=== PATIENT | female | born 1950 | race Caucasian/White ===

== ENCOUNTER 2016-04-28 18:31 | Observation (INO) | payer BC ==
[~2016-04-28] VITALS: Ht 167.6 cm; Wt 73.5 kg
[2016-04-28] MEDS ORDERED: SODIUM CHLORIDE FLUSH 3 ML SYR IV ONE (19:00)
[2016-04-28] MEDS ORDERED: SODIUM CHLORIDE FLUSH 10 ML SYR IV PRN (19:00)
[2016-04-28 19:15] LABS: BASOPHILS % (AUTO) 1 % (0-2); EOSINOPHILS # (AUTO) 0.4 10^3uL; EOSINOPHILS % (AUTO) 5 % (0-4); LYMPHOCYTES # (AUTO) 1.7 X10^3; MEAN CORPUSCULAR HEMOGLOBIN 29.8 PG (26.0-34.0); MEAN CORPUSCULAR HGB CONC 33.7 g/dL (31.0-37.0); MEAN CORPUSCULAR VOLUME 88 FL (80-100); MEAN PLATELET VOLUME 9.6 FL (6.0-9.5); MONOCYTES # (AUTO) 0.8 X10^3; MONOCYTES % (AUTO) 10 % (3-11); NEUTROPHILS # (AUTO) 5.1 X10^3; NEUTROPHILS % (AUTO) 63 % (51-67); PLATELET COUNT 301 10^3uL (150-450); WHITE BLOOD COUNT 8.08 10^3uL (4.0-11.0)
[2016-04-28 19:34] LABS: ALBUMIN 4.6 g/dL (3.4-5.0); ALKALINE PHOSPHATASE 85 U/L (38-126); ANION GAP 19.2 MEQ/L (3-15); BUN/CREATININE RATIO 27 (10-20); CALCULATED IONIZED CALCIUM 4.1 mg/dL (3.8-4.6); CREATINE KINASE 32 U/L (30-135); TOTAL PROTEIN 8.8 g/dL (6.4-8.5)
[2016-04-28 20:19] LABS: BILIRUBIN,URINE Negative (Negative); CLARITY,URINE Cloudy; COLOR,URINE Amber; GLUCOSE, URINE (UA) Negative (Negative); LEUKOCYTE ESTERASE ,URINE 2+ (Negative); PH,URINE 5.5 (5.0 - 8.0); UROBILINOGEN,URINE 0.2 mg/dL (0.2-1.0)
[2016-04-28 20:31] LABS: URINE CENTRIFUGED VOLUME 12 mL
[2016-04-28 20:32] LABS: CALCIUM OXALATE CRYSTALS,UR Rare /HPF
[2016-04-28 20:33] LABS: AMPHETAMINE SCREEN, URINE Negative (Negative); CANNABINOID SCREEN, URINE Negative (Negative); METHAMPHETAMINE SCREEN URINE S NEGATIVE (NEGATIVE); OPIATE SCREEN URINE Negative (Negative); PROPOXYPHENE STAT NEGATIVE (NEGATIVE)
[2016-04-28] MEDS ORDERED: ACETAMINOPHEN 325 MG TAB (TYLENOL) PO PRN (21:35)
[2016-04-28] MEDS ORDERED: MECLIZINE 25 MG (ANTIVERT) TABLET PO PRN (21:35)
[2016-04-28] MEDS ORDERED: MAG HYDROX/AL HYDROX/SIMETH 200-200-20/5 ML (MAG-AL PLUS) 30 ML UDC PO PRN (21:40)
[2016-04-28] MEDS ORDERED: PROMETHAZINE HCL INJ 12.5 MG in SODIUM CHLORIDE 25 ML IV PRN (21:40)
[2016-04-28] MEDS: cefTRIAXone SODIUM 1,000 MG in SODIUM CHLORIDE 50 ML IV SCH (21:40)
[2016-04-28] MEDS ORDERED: MAGNESIUM HYDROXIDE 80MG/ML (MILK OF MAGNESIA) 30 ML UDC PO PRN (21:40)
[2016-04-28] MEDS ORDERED: POLYETHYLENE GLYCOL 17 GM (MIRALAX) PACKET PO PRN (21:40)
[2016-04-28] MEDS ORDERED: CALCIUM CARBONATE CHEWABLE 300 MG (TUMS) TABLET PO PRN (21:40)
[2016-04-28] MEDS ORDERED: DOCUSATE SODIUM 100 MG (COLACE) CAP PO PRN (21:40)
[2016-04-28] MEDS ORDERED: ONDANSETRON 4 MG (ZOFRAN) ORAL DISSOLVE TAB PO PRN (21:40)
[2016-04-28 21:45] VITALS: BP 155/85
[2016-04-28 21:48] VITALS: BP 155/85
[2016-04-28] MEDS ORDERED: cefTRIAXone 1 GM (ROCEPHIN) VIAL ONE (21:48)
[2016-04-28] MEDS ORDERED: SODIUM CHLORIDE 100 ML ONE (21:49)
[2016-04-28] MEDS ORDERED: DEXTROSE 50% 25 GM/50 ML SYRINGE IV PRN (22:20)
[2016-04-28] MEDS ORDERED: GLUCAGON EMERGENCY 1 MG/KIT IM PRN (22:20)
[2016-04-28] MEDS ORDERED: DEXTROSE ORAL GEL (GLUTOSE 40%) 15 GM TUBE PO PRN (22:20)
[2016-04-29 04:32] VITALS: BP 140/77
[2016-04-29 06:10] LABS: BASOPHILS % (AUTO) 1 % (0-2); EOSINOPHILS # (AUTO) 0.4 10^3uL; EOSINOPHILS % (AUTO) 6 % (0-4); LYMPHOCYTES # (AUTO) 1.8 X10^3; MEAN CORPUSCULAR HEMOGLOBIN 29.4 PG (26.0-34.0); MEAN CORPUSCULAR HGB CONC 33.5 g/dL (31.0-37.0); MEAN CORPUSCULAR VOLUME 88 FL (80-100); MEAN PLATELET VOLUME 9.6 FL (6.0-9.5); MONOCYTES # (AUTO) 0.8 X10^3; MONOCYTES % (AUTO) 12 % (3-11); NEUTROPHILS # (AUTO) 3.4 X10^3; NEUTROPHILS % (AUTO) 53 % (51-67); PLATELET COUNT 264 10^3uL (150-450); WHITE BLOOD COUNT 6.37 10^3uL (4.0-11.0)
[2016-04-29] MEDS: INSULIN LISPRO 1 UNIT/0.01 ML (HUMALOG) DOSE SC SCH ×4 (06:10→21:00)
[2016-04-29 06:39] LABS: ALBUMIN 3.9 g/dL (3.4-5.0); ANION GAP 15.6 MEQ/L (3-15); PHOSPHORUS 3.8 mg/dL (2.4-4.9)
[2016-04-29 07:29] VITALS: BP 115/59
[2016-04-29] MEDS: ATORVASTATIN 40 MG (LIPITOR) TABLET PO SCH (08:11)
[2016-04-29] MEDS: ENOXAPARIN 40 MG/0.4 ML (LOVENOX) SYR SC SCH (08:11)
[2016-04-29] MEDS: METFORMIN 500 MG PO SCH ×2 (08:11→17:09)
[2016-04-29] MEDS: ASPIRIN 81 MG CHEW (CHILDREN'S ASA) PO SCH (08:11)
[2016-04-29] MEDS: TIMOLOL 0.25% OU SCH (10:27)
[2016-04-29 11:21] VITALS: BP 115/76
[2016-04-29 15:39] VITALS: BP 130/69
[2016-04-29 19:51] VITALS: BP 158/60
[2016-04-29] MEDS: cefTRIAXone SODIUM 1,000 MG in SODIUM CHLORIDE 50 ML IV SCH (20:19)
[2016-04-29] MEDS ORDERED: LATANOPROST 0.005% OPHTHALMIC SOLN (XALATAN) 2.5 ML BTL OU SCH (21:00)
[2016-04-30 00:14] VITALS: BP 122/58
[2016-04-30 04:48] VITALS: BP 116/53
[2016-04-30] MEDS: INSULIN LISPRO 1 UNIT/0.01 ML (HUMALOG) DOSE SC SCH (07:09)
[2016-04-30 07:57] VITALS: BP 140/84
[2016-04-30] MEDS: TIMOLOL 0.25% OU SCH (08:10)
[2016-04-30] MEDS: ASPIRIN 81 MG CHEW (CHILDREN'S ASA) PO SCH (08:10)
[2016-04-30] MEDS: ENOXAPARIN 40 MG/0.4 ML (LOVENOX) SYR SC SCH (08:10)
[2016-04-30] MEDS: ATORVASTATIN 40 MG (LIPITOR) TABLET PO SCH (08:10)
[2016-04-30] MEDS: METFORMIN 500 MG PO SCH (08:11)
== END 2016-04-30 10:38 | disposition short-term general hospital (02) ==
LOC: ED 18:33 → MED/SURG 21:02
PROVIDERS: ADMIT Internal Medicine; ATTEND Internal Medicine
DX: R47.01 Aphasia (principal); R47.1 Dysarthria and anarthria; N39.0 Urinary tract infection, site not specified; R27.0 Ataxia, unspecified; E86.0 Dehydration; R42 Dizziness and giddiness; R51 Headache; R55 Syncope and collapse; E11.9 Type 2 diabetes mellitus without complications; I10 Essential (primary) hypertension; H40.9 Unspecified glaucoma; Z79.82 Long term (current) use of aspirin; G93.89 Other specified disorders of brain
CPT/HCPCS: 36415; 70450; 71020; 80053; 80069; 80307; 81003; 81015; 82550; 82553; 83880; 84443; 84484; 85025; 85610; 86140; 87088; 94760; 96365; 96366; 96372; 97110; 97161; 97166; 99218; 99284; G8978; G8979; G8987; G8988; J0696; J1650; J7030; J7050; 93005; 93010; 99285

== ENCOUNTER → 2016-04-28 | Outpatient (CLI) | payer BC ==
[~2016-04-28] MED LIST: AC325T PO; ASCO-262 PO; ASPI-158 PO; ASPI-586 PO; ATOR80TA PO; BUDE8.6S NSEACH; C250T PO; CALC500T3 PO; CHOL400T29 PO; CYAN200014 PO; DOCU100C8 PO; FERR-74 PO; FERR325T5 PO; GLIM2TAB PO; GLIP10TA13 PO; L.AC1CAP6 PO; LATA2.5D5 OU; MECL-105 PO; MMT17NA NSEACH; MTF500TCR PO; NF-VITD400 PO; PEG15DRO5 OU; PHEN10TA20 PO; PRD20T PO; TIMO10DR12 OU; TIMO5DRO17 OU; WALKER
== END ==
LOC: EMS 18:50
PROVIDERS: ATTEND Family Medicine
DX: I63.9 Cerebral infarction, unspecified (principal)

== ENCOUNTER → 2016-04-30 | Outpatient (CLI) | payer BC | LOC: EMS 11:00 | PROVIDERS: ATTEND Internal Medicine | DX: R47.1 Dysarthria and anarthria (principal); R47.01 Aphasia; N39.0 Urinary tract infection, site not specified ==

== ENCOUNTER 2016-05-22 06:56 | Inpatient (IN) | payer BC ==
[2016-05-22] VITALS (9 sets, daily range): BP systolic 101–168; BP diastolic 41–86
[~2016-05-22] VITALS: Ht 165.1 cm; Wt 75.1 kg
[2016-05-22] MEDS ORDERED: NS IV 500 ML 500 ML IV SCH ×2 (07:45→08:35)
[2016-05-22 08:10] LABS: MEAN CORPUSCULAR HEMOGLOBIN 30.1 PG (26.0-34.0); MEAN CORPUSCULAR HGB CONC 35.4 g/dL (31.0-37.0); MEAN CORPUSCULAR VOLUME 85 FL (80-100); PLATELET COUNT 315 10^3uL (150-450)
[2016-05-22 08:15] LABS: BILIRUBIN,URINE Negative (Negative); CLARITY,URINE Cloudy; GLUCOSE, URINE (UA) Negative (Negative); LEUKOCYTE ESTERASE ,URINE 1+ (Negative); PH,URINE 5.5 (5.0 - 8.0); UROBILINOGEN,URINE 0.2 mg/dL (0.2-1.0)
[2016-05-22 08:18] LABS: COLOR,URINE Dark Yellow
[2016-05-22 08:20] LABS: WHITE BLOOD COUNT 31.44 10^3uL (4.0-11.0)
[2016-05-22 08:22] LABS: ALKALINE PHOSPHATASE 88 U/L (38-126); ANION GAP 18.6 MEQ/L (3-15); BAND NEUTROPHILS % 2 % (0-6); BUN/CREATININE RATIO 21 (10-20); CALCULATED IONIZED CALCIUM 4.5 mg/dL (3.8-4.6); EOSINOPHILS % 1 % (0-4); LYMPHOCYTES # 1.6 #; MONOCYTES # 3.1 #; MONOCYTES % 10 % (3-11); RBC MORPH NORMAL (NORMAL); SEGMENTED NEUTROPHILS % 82 % (51-67); TOTAL CELLS COUNTED 100; TOTAL PROTEIN 7.5 g/dL (6.4-8.5)
[2016-05-22 08:26] LABS: URINE CENTRIFUGED VOLUME <10mL Unspun
[2016-05-22 08:27] LABS: AMPHETAMINE SCREEN, URINE Negative (Negative); CANNABINOID SCREEN, URINE Negative (Negative); METHAMPHETAMINE SCREEN URINE S NEGATIVE (NEGATIVE); OPIATE SCREEN URINE Negative (Negative); PROPOXYPHENE STAT NEGATIVE (NEGATIVE); RBC,URINE 50-100 /HPF
[2016-05-22 08:29] LABS: CREATINE KINASE 590 U/L (30-135)
[2016-05-22] MEDS ORDERED: cefTRIAXone SODIUM 1,000 MG in SODIUM CHLORIDE 50 ML IV ONE (08:35)
--- NOTE | 2016-05-22 08:48 | NUR ---
Dr. Hercules consulting Dr. Wang. Patient to be discussed
--- NOTE | 2016-05-22 09:15 | NUR ---
Rocephin infusion completed at this time
--- NOTE | 2016-05-22 09:50 | NUR ---
Normal Saline fluid bolus is completed at this time.
--- NOTE | 2016-05-22 10:00 | NUR ---
FALL RISK GOWN PLACED ON PT & REG HOSP GOWN REMOVED. CL
[2016-05-22] MEDS ORDERED: GLUCAGON EMERGENCY 1 MG/KIT IM PRN (10:20)
[2016-05-22] MEDS ORDERED: ONDANSETRON 2 MG/ML (Z0FRAN) 2 ML VIAL IV PRN (10:20)
[2016-05-22] MEDS ORDERED: ACETAMINOPHEN 325 MG TAB (TYLENOL) PO PRN (10:20)
[2016-05-22] MEDS ORDERED: DEXTROSE 50% 25 GM/50 ML SYRINGE IV PRN (10:20)
[2016-05-22] MEDS ORDERED: DEXTROSE ORAL GEL (GLUTOSE 40%) 15 GM TUBE PO PRN (10:20)
--- NOTE | 2016-05-22 10:20 | NUR ---
Pt admitted to 310 via cart accompanied by Jacinto ED RN. Pt transferred to cart via slideboard. Pt rouses to name, but quickly drifts off to sleep. Pt is oriented to self, location, and year but does not answer any other questions. Tushar, at bedside. NS at 100mL/hr infusing into 22g LH with no difficulty. Bed alarm, pressure alarm, tabs alarm on for safety.
[2016-05-22] MEDS ORDERED: NS FLUSH 3 ML PRN IV (10:35)
[2016-05-22] MEDS ORDERED: NS FLUSH 10 ML PRN IV (10:35)
[2016-05-22] MEDS: INSULIN LISPRO 1 UNIT/0.01 ML (HUMALOG) DOSE SC SCH ×3 (11:30→21:17)
[2016-05-22] MEDS ORDERED: DOCUSATE SODIUM 100 MG (COLACE) CAP PO PRN (11:55)
[2016-05-22] MEDS ORDERED: [UNRECOGNIZED DRUG - OTHER] OU PRN (11:55)
[2016-05-22] MEDS ORDERED: HYPROMELLOSE OU PRN (11:55)
[2016-05-22] MEDS ORDERED: PEG OU PRN (11:55)
[2016-05-22] MEDS ORDERED: GLYCERIN OU PRN (11:55)
[2016-05-22] MEDS ORDERED: NON-FORMULARY MEDICATION 1 EA EA (L.acidoph & Paracasei,B.lactis (Probiotic) 1 CAP) PO PRN (11:55)
[2016-05-22] MEDS ORDERED: ACIDOPHILUS/LACTOBACILLUS SPOROGENES 1 TABLET PO PRN (13:45)
[2016-05-22] MEDS ORDERED: CALCIUM CARBONATE CHEWABLE 300 MG (TUMS) TABLET PO PRN (13:45)
[2016-05-22] MEDS ORDERED: ARTIFICIAL TEARS (REFRESH) OPHTHALMIC DROPS OU PRN (13:45)
--- NOTE | 2016-05-22 16:52 | NUR ---
MED REC IN PROGRESS: prescription medications verified by retail pharmacy ( pharmacy), external med history application and list provided by PCP (Aubrey). will bring in complete medication list including all otc meds. Completed by Anjali Mueller, Pharm. D. Candidate 2017.
--- NOTE | 2016-05-22 17:59 | NUR ---
Pt resting in bed, slept for most of shift. Skin warm, dry, intact. Resprs nonlabored, even on RA. at bedside. Pt has been lethargic and somnolent this shift, does rouse to voice but quickly falls back asleep. Oriented to name, location, and year, but does not answer other questions. Speech is delayed and somewhat slurred. NS @ 100mL/hr infusing with no difficulty. Bed/tabs/pressure alarms on at this time.
--- NOTE | 2016-05-22 18:30 | NUR ---
PRN Zofran given at this time d/t pt small amount of vomiting undigested food. Pt denies pain or nausea.
[2016-05-22] MEDS: ATORVASTATIN 40 MG (LIPITOR) TABLET PO SCH (20:42)
[2016-05-22] MEDS: LATANOPROST 0.005% OPHTHALMIC SOLN (XALATAN) 2.5 ML BTL OU SCH (20:42)
[2016-05-23 00:05] VITALS: BP 157/66
[2016-05-23 03:54] VITALS: BP 128/52
[2016-05-23 06:18] LABS: MEAN CORPUSCULAR HGB CONC 35.3 g/dL (31.0-37.0); MEAN CORPUSCULAR VOLUME 85 FL (80-100); MEAN PLATELET VOLUME 9.9 FL (6.0-9.5); PLATELET COUNT 228 10^3uL (150-450); WHITE BLOOD COUNT 23.07 10^3uL (4.0-11.0)
--- NOTE | 2016-05-23 06:24 | NUR ---
Patient rests in bed throughout night. Has difficulties transferring to weight chair with two assist. Has been incontinent throughout night. Resting in bed, has been slightly confused about location and situation this shift. No needs at this time.
[2016-05-23 06:35] LABS: BAND NEUTROPHILS % 4 % (0-6); EOSINOPHILS % 0 % (0-4); LYMPHOCYTES # 0.7 #; MONOCYTES # 0.5 #; MONOCYTES % 2 % (3-11); RBC MORPH NORMAL (NORMAL); SEGMENTED NEUTROPHILS % 91 % (51-67); TOTAL CELLS COUNTED 100
[2016-05-23 06:40] LABS: ALBUMIN 3.1 g/dL (3.4-5.0); ANION GAP 13.9 MEQ/L (3-15); CALCULATED IONIZED CALCIUM 4.2 mg/dL (3.8-4.6); TOTAL PROTEIN 6.4 g/dL (6.4-8.5)
[2016-05-23] MEDS: INSULIN LISPRO 1 UNIT/0.01 ML (HUMALOG) DOSE SC SCH ×4 (08:01→21:08)
[2016-05-23 08:10] VITALS: BP 142/66
--- NOTE | 2016-05-23 08:30 | NUR ---
Patient is alert and able to answer most simple questions. She is oriented X2. Poor impulse control this morning- does not seem to take safety advice. Placed a pressure alarm in the chair and in the bed. Tabs alarm as well.
[2016-05-23] MEDS ORDERED: NON-FORMULARY MEDICATION 1 EA EA (Cyanocobalamin (Vitamin B-12) (Vitamin B-12) 2,000 MCG) PO SCH (09:00)
[2016-05-23] MEDS ORDERED: NON-FORMULARY MEDICATION 1 EA EA (Aspirin (Aspir 81) 81 MG) PO SCH (09:00)
[2016-05-23] MEDS ORDERED: NON-FORMULARY MEDICATION 1 EA EA (Ascorbate Calcium (Vitamin C) 500 MG) PO SCH (09:00)
[2016-05-23] MEDS ORDERED: ATORVASTATIN 80 MG PO SCH (09:00)
[2016-05-23] MEDS: FERROUS SULFATE 325 MG (IRON) TABLET PO SCH (10:04)
[2016-05-23] MEDS: ASCORBIC ACID 500 MG (VITAMIN C) TABLET PO SCH (10:04)
[2016-05-23] MEDS: ASPIRIN 81 MG CHEW (CHILDREN'S ASA) PO SCH (10:05)
[2016-05-23] MEDS: CYANOCOBALAMIN 1000 MCG (VITAMIN B-12) TABLET PO SCH (10:05)
[2016-05-23] MEDS: TIMOLOL 0.25% OU SCH (10:05)
[2016-05-23] MEDS: NS FLUSH 3 ML DAILY IV SCH ×2 (10:06→17:45)
[2016-05-23] MEDS: CHOLECALCIFEROL PO SCH (10:06)
[2016-05-23] MEDS: cefTRIAXone SODIUM 1,000 MG in SODIUM CHLORIDE 50 ML IV SCH (10:06)
[2016-05-23] MEDS ORDERED: SODIUM CHLORIDE 100 ML ONE (10:18)
[2016-05-23] MEDS ORDERED: NS 100 ML (IVPB) BAG IV PRN (10:20)
[2016-05-23 11:35] VITALS: BP 100/61
[2016-05-23 16:00] VITALS: BP 118/68
[2016-05-23] MEDS ORDERED: MECLIZINE 12.5 MG PO PRN (17:00)
--- NOTE | 2016-05-23 18:46 | NUR ---
The patient remains confused but her mentation has improved some since this morning. She is oriented to place, time, self, and situation but she did not know the current president. She has been drowsy all day but wakes easily. Able to get up with assist of one this afternoon which is also an improvement. She still has difficulty processing information when she's given an instruction.
[2016-05-23 19:32] VITALS: BP 103/48
[2016-05-23] MEDS: LATANOPROST 0.005% OPHTHALMIC SOLN (XALATAN) 2.5 ML BTL OU SCH (21:07)
[2016-05-23] MEDS: ATORVASTATIN 40 MG (LIPITOR) TABLET PO SCH (21:07)
--- NOTE | 2016-05-23 21:10 | NUR ---
Accucheck is 283 this evening; Humalog 3 units given per sliding scale insulin. Pt. takes PO med without difficulty; denies discomfort. Pt. answers questions appropriately; delayed speech pattern; uneven bilateral profile trimmer strength. Fall risk precautions observed. Call light and H2O within reach.
[2016-05-24] VITALS (8 sets, daily range): BP systolic 96–121; BP diastolic 44–67
--- NOTE | 2016-05-24 06:00 | NUR ---
Accucheck is 156 this morning; sliding scale insulin not required. Pt. reports slight dizziness at times; quick resolution; safety measures in place.
--- NOTE | 2016-05-24 06:30 | NUR ---
Pt. slept in intervals last night; bed alarm sounded as she would attempt to get up on her own occasionally. Staff assist x2 for safety when ambulating to and fro bathroom as unsteady yet on feet. Neuro checks have slightly improved although pt. continues to have a low level of confusion at times. Accucheck this morning is 156; sliding scale insulin not required. Call light and H2O within reach. Safety measures observed.
[2016-05-24 06:32] LABS: MEAN CORPUSCULAR HEMOGLOBIN 30.1 PG (26.0-34.0); MEAN CORPUSCULAR HGB CONC 34.9 g/dL (31.0-37.0); MEAN CORPUSCULAR VOLUME 86 FL (80-100); MEAN PLATELET VOLUME 9.6 FL (6.0-9.5); PLATELET COUNT 193 10^3uL (150-450); WHITE BLOOD COUNT 12.83 10^3uL (4.0-11.0)
[2016-05-24] MEDS: INSULIN LISPRO 1 UNIT/0.01 ML (HUMALOG) DOSE SC SCH ×4 (07:11→20:37)
[2016-05-24 07:16] LABS: ALBUMIN 2.8 g/dL (3.4-5.0); ANION GAP 10.5 MEQ/L (3-15); MAGNESIUM* 1.7 mg/dL (1.6-2.3); PHOSPHORUS 2.9 mg/dL (2.4-4.9)
[2016-05-24 07:23] LABS: BAND NEUTROPHILS % 3 % (0-6); EOSINOPHILS % 0 % (0-4); HYPOCHROMASIA SLIGHT; LYMPHOCYTES # 0.5 #; MONOCYTES # 0.5 #; MONOCYTES % 4 % (3-11); RBC MORPH SEE REFERENCE (NORMAL); SEGMENTED NEUTROPHILS % 89 % (51-67); TOTAL CELLS COUNTED 100
[2016-05-24] MEDS: cefTRIAXone SODIUM 1,000 MG in SODIUM CHLORIDE 50 ML IV SCH (08:19)
--- NOTE | 2016-05-24 08:19 | NUR ---
Pt takes AM meds without difficulty. Denies needs at this time. Alert/oriented. Neuro's unchanged.
[2016-05-24] MEDS: ASPIRIN 81 MG CHEW (CHILDREN'S ASA) PO SCH (08:21)
[2016-05-24] MEDS: ASCORBIC ACID 500 MG (VITAMIN C) TABLET PO SCH (08:21)
[2016-05-24] MEDS: CHOLECALCIFEROL PO SCH (08:21)
[2016-05-24] MEDS: CYANOCOBALAMIN 1000 MCG (VITAMIN B-12) TABLET PO SCH (08:21)
[2016-05-24] MEDS: FERROUS SULFATE 325 MG (IRON) TABLET PO SCH (08:21)
[2016-05-24] MEDS: TIMOLOL 0.25% OU SCH (08:21)
--- NOTE | 2016-05-24 10:30 | NUR ---
Pt ambulating with [employer]. at bedside.
--- NOTE | 2016-05-24 14:21 | NUR ---
IVF complete at this time- SL per orders.
--- NOTE | 2016-05-24 15:52 | NUR ---
Visitors here for most of afternoon- have gone now. Pt to shower with Carito IRBY.
[2016-05-24] MEDS ORDERED: MECLIZINE 25 MG (ANTIVERT) TABLET PO PRN (16:00)
[2016-05-24] MEDS: predniSONE 20 MG (DELTASONE) TABLET PO SCH (17:24)
[2016-05-24] MEDS: METFORMIN 500 MG PO SCH (17:24)
--- NOTE | 2016-05-24 19:35 | NUR ---
Pt. ambulating hallway with use of walker; [employer] and at side; gait belt attached for safety. Pt. appears very cheerful; gait noted to be slow and cautious.
[2016-05-24] MEDS: ATORVASTATIN 40 MG (LIPITOR) TABLET PO SCH (20:35)
[2016-05-24] MEDS: LATANOPROST 0.005% OPHTHALMIC SOLN (XALATAN) 2.5 ML BTL OU SCH (20:36)
--- NOTE | 2016-05-24 20:40 | NUR ---
Humalog 4 units given per sliding scale insulin-accucheck is 309 this evening. Pt. takes PO med without difficulty; positions self well for eye drops; is pleasant and cooperative. Pt. appears to have quicker responses in conversation this evening. Pt. denies dizziness this evening; safety measures in place; currently resting in recliner watching sports with . Call light and H2O within reach.
[2016-05-25 01:03] VITALS: BP 124/62
[2016-05-25 06:06] LABS: MEAN CORPUSCULAR HEMOGLOBIN 30.5 PG (26.0-34.0); MEAN CORPUSCULAR VOLUME 85 FL (80-100); MEAN PLATELET VOLUME 10.4 FL (6.0-9.5); PLATELET COUNT 199 10^3uL (150-450); WHITE BLOOD COUNT 5.44 10^3uL (4.0-11.0)
[2016-05-25 06:08] VITALS: BP 132/68
[2016-05-25 06:11] LABS: MEAN CORPUSCULAR HGB CONC 35.9 g/dL (31.0-37.0)
--- NOTE | 2016-05-25 06:20 | NUR ---
Accucheck is 264 this morning. Pt. slept in long intervals; assist x 1 to bathroom with use of walker PRN; denies dizziness. Stool sample obtained this shift. Safety measures in place. Call light and H2O within reach.
[2016-05-25 06:29] LABS: ALBUMIN 2.6 g/dL (3.4-5.0); ANION GAP 13.9 MEQ/L (3-15); MAGNESIUM* 1.6 mg/dL (1.6-2.3)
[2016-05-25 06:37] LABS: BAND NEUTROPHILS % 1 % (0-6); EOSINOPHILS % 0 % (0-4); LYMPHOCYTES # 0.3 #; MONOCYTES # 0.1 #; MONOCYTES % 1 % (3-11); RBC MORPH NORMAL (NORMAL); SEGMENTED NEUTROPHILS % 93 % (51-67); TOTAL CELLS COUNTED 100
[2016-05-25 06:44] LABS: PHOSPHORUS 3.4 mg/dL (2.4-4.9)
[2016-05-25] MEDS: INSULIN LISPRO 1 UNIT/0.01 ML (HUMALOG) DOSE SC SCH ×4 (08:04→21:20)
[2016-05-25] MEDS: predniSONE 20 MG (DELTASONE) TABLET PO SCH ×2 (08:05→17:26)
[2016-05-25] MEDS: METFORMIN 500 MG PO SCH ×2 (08:05→17:26)
[2016-05-25] MEDS: NS FLUSH 3 ML DAILY IV SCH (08:05)
[2016-05-25] MEDS: TIMOLOL 0.25% OU SCH (08:05)
[2016-05-25] MEDS: cefTRIAXone SODIUM 1,000 MG in SODIUM CHLORIDE 50 ML IV SCH (08:05)
[2016-05-25] MEDS: CHOLECALCIFEROL PO SCH (08:07)
[2016-05-25] MEDS: ASPIRIN 81 MG CHEW (CHILDREN'S ASA) PO SCH (08:07)
[2016-05-25] MEDS: FERROUS SULFATE 325 MG (IRON) TABLET PO SCH (08:07)
[2016-05-25] MEDS: ASCORBIC ACID 500 MG (VITAMIN C) TABLET PO SCH (08:07)
[2016-05-25] MEDS: CYANOCOBALAMIN 1000 MCG (VITAMIN B-12) TABLET PO SCH (08:07)
--- NOTE | 2016-05-25 08:10 | NUR ---
Pt transfers from bed to chair for bfst meal. Blood sugar this AM was 264- Humalog 3units given with bfst per Sliding scale. Takes AM meds without difficulty. Rocephin infusing without difficulty to 22g in [facility]. Denies further needs. Yellow gown/socks in place. tabs alarm and pressure alarm intact for patient safety.
[2016-05-25 08:35] VITALS: BP 125/65
[2016-05-25 11:42] VITALS: BP 129/49
[2016-05-25 16:23] VITALS: BP 142/73
--- NOTE | 2016-05-25 17:43 | NUR ---
Pt sitting up in recliner eating supper and watching tv. Pressure alarm and tabs alarm in place for safety. Takes am meds appropriately. 1700 blood glucose fingerstick was 321- Humalog 7 units sliding scale given as ordered. Will cont to monitor patient.
[2016-05-25 19:39] VITALS: BP 138/61
--- NOTE | 2016-05-25 20:00 | NUR ---
Resting in bed. Is alert and oriented. States she is feeling good tonight. SL intact without complications to site. Denies pain or headache tonight. Ambulates to bathroom with stand by assist of one. Uses walker. Is unsteady at times, but that is her norm. No concerns voiced Call light within reach.
[2016-05-25] MEDS: ATORVASTATIN 40 MG (LIPITOR) TABLET PO SCH (21:17)
[2016-05-25] MEDS: LATANOPROST 0.005% OPHTHALMIC SOLN (XALATAN) 2.5 ML BTL OU SCH (21:17)
[2016-05-26] VITALS (7 sets, daily range): BP systolic 116–149; BP diastolic 57–77
--- NOTE | 2016-05-26 05:44 | NUR ---
Rested well tonight. Up to the bathroom with minimal assist. Remains oriented. Slowly getting stronger. Pleasant and cooperative with cares. Call light within reach.
[2016-05-26 06:06] LABS: MEAN CORPUSCULAR HEMOGLOBIN 30.3 PG (26.0-34.0); MEAN CORPUSCULAR HGB CONC 35.3 g/dL (31.0-37.0); MEAN CORPUSCULAR VOLUME 86 FL (80-100); MEAN PLATELET VOLUME 9.7 FL (6.0-9.5); PLATELET COUNT 241 10^3uL (150-450); WHITE BLOOD COUNT 6.57 10^3uL (4.0-11.0)
[2016-05-26 06:20] LABS: ANION GAP 13.7 MEQ/L (3-15); MAGNESIUM* 1.6 mg/dL (1.6-2.3); PHOSPHORUS 3.5 mg/dL (2.4-4.9)
[2016-05-26 06:33] LABS: BAND NEUTROPHILS % 2 % (0-6); EOSINOPHILS % 0 % (0-4); LYMPHOCYTES # 0.5 #; MONOCYTES # 0.5 #; MONOCYTES % 8 % (3-11); RBC MORPH NORMAL (NORMAL); SEGMENTED NEUTROPHILS % 81 % (51-67); TOTAL CELLS COUNTED 100
[2016-05-26] MEDS: INSULIN LISPRO 1 UNIT/0.01 ML (HUMALOG) DOSE SC SCH ×4 (06:35→21:31)
[2016-05-26] MEDS: CHOLECALCIFEROL PO SCH (09:18)
[2016-05-26] MEDS: FERROUS SULFATE 325 MG (IRON) TABLET PO SCH (09:18)
[2016-05-26] MEDS: ASCORBIC ACID 500 MG (VITAMIN C) TABLET PO SCH (09:18)
[2016-05-26] MEDS: CYANOCOBALAMIN 1000 MCG (VITAMIN B-12) TABLET PO SCH (09:18)
[2016-05-26] MEDS: TIMOLOL 0.25% OU SCH (09:19)
[2016-05-26] MEDS: ASPIRIN 81 MG CHEW (CHILDREN'S ASA) PO SCH (09:19)
[2016-05-26] MEDS: METFORMIN 500 MG PO SCH ×2 (09:19→17:38)
[2016-05-26] MEDS: predniSONE 20 MG (DELTASONE) TABLET PO SCH ×2 (09:19→17:38)
[2016-05-26] MEDS: NS FLUSH 3 ML DAILY IV SCH (09:22)
[2016-05-26] MEDS: cefTRIAXone SODIUM 1,000 MG in SODIUM CHLORIDE 50 ML IV SCH (09:22)
[2016-05-26] MEDS: GLIMEPIRIDE 2 MG (AMARYL) TAB PO SCH ×2 (10:46→17:38)
--- NOTE | 2016-05-26 11:07 | NUR ---
NUTRITION ASSESSMENT Level 1 Patient: Aneta Praks Age/Sex: 66/F Date Screened: 05-26-16 Weight: 165.2#/75.1 kg Height: 65 inches Primary Diagnosis: urosepsis Diet Order: medium diabetic Relevant labs: glucose 281 Food allergies: N Nutrition Assessment Criteria Age over 80: N Body Mass Index (BMI) under 19: N Admission Screening Indicates Risk? N Moderate/High Risk Diagnosis: N TPN or PPN: N NPO or clear liquid diet: N Serum Glucose <70 or >180: 3 points Hgb A1c >6.7: N/A Total: 3 points Risk Screen: __ Patient at low nutritional risk based on available data; reevaluate in 5-7 days _X_ Patient at moderate nutritional risk based on available data; reevaluate in 3-5 days __ Patient at high nutritional risk; complete Nutrition Assessment within 48 hours of admission. Comments: Pt. reports weight loss but compared with past admissions, her weight is holding pretty steady. She was 161# on 04-29-16 and 166# in 2015, so she is back to her prior weight. Appetite is good, eating 75-100% of medium diabetic diet. Elevated blood sugars likely due to steroids for recently dx neurosarcoidosis. Noted vast improvement in symptoms with possible plans to go home tomorrow.
--- NOTE | 2016-05-26 13:48 | NUR ---
MULTIDISCIPLINARY MTG/DR. KAMINSKI: Pt. admitted with weakness and UTI along with altered mental status. Pt. has bounced back rapidly after receiving antibiotics. Pt. will receive her last dose of ceftriaxone today. Pt. will follow up with neurology and rheumatology at discharge. Plan for Pt. to discharge home with home health and home PT. SW will check to see if Pt. has a skilled benefit.
--- NOTE | 2016-05-26 19:30 | NUR ---
Patient has been completely oriented today and able to answer questions quickly and appropriately. Able to get up with stand by assist as well. A considerable improvement from Thursday.
[2016-05-26] MEDS: ATORVASTATIN 40 MG (LIPITOR) TABLET PO SCH (21:31)
[2016-05-26] MEDS: LATANOPROST 0.005% OPHTHALMIC SOLN (XALATAN) 2.5 ML BTL OU SCH (21:31)
[2016-05-27 00:18] VITALS: BP 162/85
[2016-05-27 04:08] VITALS: BP 151/76
--- NOTE | 2016-05-27 05:44 | NUR ---
Pt rests in long intervals throughout the night. Remains alert and oriented. Answers questions and uses call light appropriately. SL intact. Resp even and non labored on RA. Blood sugars remain elevated. Pt denies needs at this time.
[2016-05-27 07:48] VITALS: BP 143/79
[2016-05-27] MEDS: CYANOCOBALAMIN 1000 MCG (VITAMIN B-12) TABLET PO SCH (08:16)
[2016-05-27] MEDS: ASPIRIN 81 MG CHEW (CHILDREN'S ASA) PO SCH (08:16)
[2016-05-27] MEDS: predniSONE 20 MG (DELTASONE) TABLET PO SCH (08:16)
[2016-05-27] MEDS: GLIMEPIRIDE 2 MG (AMARYL) TAB PO SCH (08:16)
[2016-05-27] MEDS: METFORMIN 500 MG PO SCH (08:16)
[2016-05-27] MEDS: CHOLECALCIFEROL PO SCH (08:16)
[2016-05-27] MEDS: ASCORBIC ACID 500 MG (VITAMIN C) TABLET PO SCH (08:16)
[2016-05-27] MEDS: FERROUS SULFATE 325 MG (IRON) TABLET PO SCH (08:16)
[2016-05-27] MEDS: INSULIN LISPRO 1 UNIT/0.01 ML (HUMALOG) DOSE SC SCH ×2 (08:18→12:21)
[2016-05-27] MEDS: NS FLUSH 3 ML DAILY IV SCH (08:24)
[2016-05-27] MEDS: TIMOLOL 0.25% OU SCH (08:24)
[2016-05-27 11:29] VITALS: BP 127/73
--- NOTE | 2016-05-27 13:19 | NUR ---
Pt rests in chair this morning. Denies needs. Skin warm, dry, intact. Resprs nonlabored, even on RA. Pt endorses feeling better. to arrive around [id number] to pick patient up. Will go over discharge instructions with patient and once he arrives. Call light within reach.
--- NOTE | 2016-05-27 14:15 | NUR ---
Received report from Monica Martinez RN. Assumed patient care.
[2016-05-27 15:54] VITALS: BP 132/63
--- NOTE | 2016-05-28 09:00 | NUR ---
Followed up with [facility] who reported they received the information yesterday regarding Pt. but they do not provide home health services. They only provide outpatient PT/OT. Stated Pt. may have been confused because some of their staff also works for [employer]. Information was sent to [employer] which they received and they would be contacting Pt. to start services.
== END 2016-05-27 17:18 | disposition home health service (06) | DRG 872 ==
LOC: EDBD 06:56 → EDUNIT# 06:56 → ED 06:58 → MED/SURG 10:02
PROVIDERS: ADMIT Internal Medicine; ATTEND Internal Medicine
DX: A41.9 Sepsis, unspecified organism (principal); N39.0 Urinary tract infection, site not specified; D86.89 Sarcoidosis of other sites; H81.10 Benign paroxysmal vertigo, unspecified ear; E11.65 Type 2 diabetes mellitus with hyperglycemia; D50.9 Iron deficiency anemia, unspecified; I10 Essential (primary) hypertension; E78.5 Hyperlipidemia, unspecified; R91.8 Other nonspecific abnormal finding of lung field; R90.89 Other abnormal findings on diagnostic imaging of central nervous system; E86.0 Dehydration; Z79.82 Long term (current) use of aspirin; Z79.84 Long term (current) use of oral hypoglycemic drugs; Z86.74 Personal history of sudden cardiac arrest
CPT/HCPCS: 36415; 51701; 70450; 71010; 80053; 80069; 80307; 80320; 81003; 81015; 82550; 82553; 83605; 83735; 83880; 84443; 84484; 85025; 85379; 85610; 86140; 87040; 87077; 87088; 93005; 93010; 99285

== ENCOUNTER → 2016-05-22 | Outpatient (CLI) | payer BC | LOC: EMS 07:10 | PROVIDERS: ATTEND Family Medicine | DX: R41.82 Altered mental status, unspecified (principal); R47.89 Other speech disturbances ==